=== PATIENT | male | born 1965 | race Caucasian/White ===

== ENCOUNTER → 2020-06-28 | Outpatient (CLI) | payer OTHER | LOC: SPEC 20:06 | PROVIDERS: ATTEND Emergency Medicine | DX: R07.9 Chest pain, unspecified (principal) | CPT/HCPCS: 36415; 84484 ==

== ENCOUNTER → 2020-06-29 | Outpatient (CLI) | payer OTHER ==
[~2020-06-29] MED LIST: IOHEXOL 300 MG/ML 75 ML VIAL. IV ONE; IOHEXOL 350 MG/ML 100 ML VIAL. IV ONE
--- NOTE | 2020-06-29 11:54 | RAD ---
EXAM: Chest, single view. HISTORY: Shortness of breath. COMPARISON: None. FINDINGS: A frontal view of the chest obtained. There is no infiltrate, pleural effusion or pneumotho rax. The heart is normal in size. IMPRESSION: No acute pulmonary finding. Electronically signed by: Shabnam Greco MD (06/29/2020 11:51 AM) [id number]
--- NOTE | 2020-06-29 13:53 | RAD ---
EXAM: CT angiography of the chest with intravenous contrast. HISTORY: Shortness of breath. TECHNIQUE: Computed tomographic images of the chest were obtained following the administration of int ravenous contrast according to angiography protocol. Multiplanar reformatting was performed and three dimensional maximum intensity projection images were obtained. *One or more of the following individualized dose reduction techniques were utilized for this examina tion: 1. Automated exposure control. 2. Adjustment of the mA and/or kV according to patient size. 3. Use of iterative reconstruction technique. COMPARISON: None. FINDINGS: There are bilateral lower lobe pulmonary emboli. No saddle embolus is seen. There is no jitendra dence of pulmonary artery hypertension or right heart strain. The thoracic aorta is normal in caliber . There are nonspecific mediastinal and hilar lymph nodes, likely physiologic in etiology. There is a trace left pleural effusion. There is no pneumothorax. There is pleural posterior dependent and basi lar atelectasis. There is no suspicious pulmonary nodule. There is anterior left renal cortical scarr ing. There is mild left hydronephrosis or pelviectasis, partially included on the [id number]. Ther e is no suspicious osseous lesion. IMPRESSION: 1. Bilateral lower lobe pulmonary emboli. 2. Left renal cortical scarring and suspected mild left hydronephrosis or pelviectasis, partially inc luded on the [id number]. This can be better assessed with a nonemergent renal sonogram if clinical ly indicated. Findings were discussed with Dr. Thrasher at 1350 hours on 06/30/2020. Electronically signed by: Shabnam Greco MD (06/29/2020 1:50 PM) [id number]
== END ==
LOC: EEVIPCON 11:15 → CT 11:15
PROVIDERS: ATTEND Family Medicine
DX: I26.99 Other pulmonary embolism without acute cor pulmonale (principal); J98.11 Atelectasis; N28.89 Other specified disorders of kidney and ureter; I82.409 Acute embolism and thrombosis of unspecified deep veins of unspecified lower extremity
CPT/HCPCS: 71045; 71275; Q9967

== ENCOUNTER → 2020-08-06 | Outpatient (CLI) | payer OTHER ==
--- NOTE | 2020-08-06 13:39 | RAD ---
US DPLX VENOUS EXTREMITY LOWER RT History: Reason: RT LE SWELLING / Spl. Instructions: KNOWN DVT RT SFV M-D SCANNED AT ASSISTED, ON BLOOD THINNERS / History: Comparison: None. Discussion: Multiple longitudinal and transverse high resolution real-time images of the venous system of right l ower extremity were obtained with color and Doppler sampling. Nonocclusive thrombus within the right superficial femoral vein and popliteal vein. Calf vein evaluat ion is degraded due to subcutaneous edema. Impression: 1. Right deep vein partial thrombus within the superficial femoral and popliteal veins. Electronically signed by: Layo Kemp DO (08/06/2020 1:37 PM) [id number]
== END ==
LOC: US 12:34
PROVIDERS: ATTEND Emergency Medicine
DX: I82.431 Acute embolism and thrombosis of right popliteal vein (principal); I82.411 Acute embolism and thrombosis of right femoral vein
CPT/HCPCS: 93971